=== PATIENT | male | born 1965 | race Asian ===

== ENCOUNTER 2016-11-12 12:51 | Emergency (ER) | payer MEDICAID, OTHER ==
[~2016-11-12] VITALS: Ht 165.1 cm; Wt 75.0 kg
[~2016-11-12 12:51] MED LIST: ACET-66 PO; CARI350 PO
[2016-11-12] MEDS ORDERED: GABA-531 PO (13:01)
[2016-11-12] MEDS ORDERED: KETOROLAC TROMETHAMINE 60 MG/2 ML VIAL IM ONE (15:15)
[2016-11-12 15:23] VITALS: BP 114/90
== END 2016-11-12 16:23 | disposition home or self-care (01) ==
LOC: EMS 12:53
DX: M54.5 Low back pain (principal); G89.29 Other chronic pain
CPT/HCPCS: 96372; 99283; J1885

== ENCOUNTER 2025-07-26 08:30 | Emergency (ER) | payer MEDICAID, OTHER ==
[~2025-07-26] VITALS: Ht 162.6 cm; Wt 73.3 kg
[~2025-07-26 08:30] MED LIST changes: -ACET-66 PO; -CARI350 PO; +GABA-1181 PO
[2025-07-26 08:41] VITALS: BP 168/84; TEMP 97.8
[2025-07-26] MEDS: ALBUTEROL SULFATE HFA 90 MCG/PUFF 8 GM INHALER IH ONE (08:53)
[2025-07-26 08:54] VITALS: PULSE 75; RESP 20; O2SAT 95
[2025-07-26] MEDS: ALBUTEROL SULFATE 2.5 MG/0.5 ML NEB SOLUTION NEB ONE (08:54)
[2025-07-26] MEDS: IPRATROPIUM BROMIDE 0.5 MG/2.5 ML NEB SOLUTION NEB ONE (08:54)
[2025-07-26 09:15] VITALS: PULSE 62; RESP 20; O2SAT 100
[2025-07-26] MEDS ORDERED: PRED-554 PO (09:37)
== END 2025-07-26 09:51 | disposition home or self-care (01) ==
LOC: EMS 08:31
DX: J45.901 Unspecified asthma with (acute) exacerbation (principal); F17.210 Nicotine dependence, cigarettes, uncomplicated; Z98.890 Other specified postprocedural states
CPT/HCPCS: 99283; 94640; J7512; J3535; 94760